=== PATIENT | male | born 1995 | race Caucasian/White ===

== ENCOUNTER 2019-05-09 12:10 | Emergency (ER) | payer MEDICAID ==
[~2019-05-09] VITALS: Ht 180.3 cm; Wt 81.6 kg
[2019-05-09 12:33] VITALS: BP 110/58
--- NOTE | 2019-05-09 13:30 | NUR ---
23/M presents ambulatory to ED, c/o cough, congestion x2 weeks. Reports chest pain with coughing. Pt awake and alert, skin normal color warm and dry, rr even and unlabored. Denies med hx.
[2019-05-09 14:10] VITALS: BP 123/70
--- NOTE | 2019-05-09 14:10 | NUR ---
Patient discharged with v/s stable. Written and verbal after care instructions given and explained. Patient alert, oriented and verbalized understanding of instructions. Ambulatory with steady gait. All questions addressed prior to discharge. ID band removed. Patient advised to follow up with PMD. Rx of naprosyn, prednisone, azithromycin, albuterol inh, aerochamger plus with mask given. Patient educated on indication of medication including possible reaction and side effects. Opportunity to ask questions provided and answered.
== END 2019-05-09 14:10 | disposition home or self-care (01) ==
LOC: MED 12:10
DX: J18.9 Pneumonia, unspecified organism (principal); J98.01 Acute bronchospasm
CPT/HCPCS: 71046; 99283

== ENCOUNTER 2019-11-07 22:52 | Emergency (ER) | payer MEDICAID ==
[~2019-11-07] VITALS: Ht 182.9 cm; Wt 81.6 kg
--- NOTE | 2019-11-07 23:00 | NUR ---
TDAP CONSENT OBTAINED FROM PT
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
[2019-11-07 23:12] VITALS: BP 119/77
--- NOTE | 2019-11-07 23:15 | NUR ---
CALLED [facility] AND SPOKE TO ANIKA [phone] TO GET [facility] TO COME AND SPEAK TO PT.
[2019-11-07] MEDS ORDERED: KETOROLAC 30 MG/ML VIAL IM ONE (23:20)
[2019-11-07] MEDS ORDERED: LIDOCAINE/EPI 1% 1:100000 20 ML VIAL INJ ONE (23:20)
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
--- NOTE | 2019-11-07 23:57 | NUR ---
[facility] AT BEDSIDE
[2019-11-08] MEDS ORDERED: BACITRACIN OINT 500 UNITS/GM PKT TP ONE (00:10)
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
[2019-11-08 00:19] VITALS: BP 119/77
== END 2019-11-08 00:19 | disposition home or self-care (01) ==
LOC: MED 22:52
DX: S41.011A Laceration without foreign body of right shoulder, initial encounter (principal); W26.0XXA Contact with knife, initial encounter; Y93.89 Activity, other specified; Y92.89 Other specified places as the place of occurrence of the external cause; Y99.8 Other external cause status
CPT/HCPCS: 12001; 73030; 90471; 90715; 96372; 99284; J1885; J2001; Q0092

== ENCOUNTER 2019-11-29 17:07 | Emergency (ER) | payer MEDICAID ==
[~2019-11-29] VITALS: Ht 175.3 cm; Wt 88.0 kg
[2019-11-29 17:10] VITALS: BP 127/88
--- NOTE | 2019-11-29 17:25 | NUR ---
amb to bed 12
[2019-11-29] MEDS ORDERED: KETOROLAC 60 MG/2 ML VIAL IM ONE (17:35)
[2019-11-29] MEDS ORDERED: LIDOCAINE MPF 1% 10 MG/ML VIAL INJ ONE (17:35)
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
[2019-11-29 18:41] VITALS: BP 127/88
== END 2019-11-29 18:41 | disposition home or self-care (01) ==
LOC: MED 17:07
DX: S61.421A Laceration with foreign body of right hand, initial encounter (principal); W22.8XXA Striking against or struck by other objects, initial encounter; Y93.89 Activity, other specified; Y92.89 Other specified places as the place of occurrence of the external cause; Y99.8 Other external cause status
CPT/HCPCS: 12031; 73130; 96372; 99284; J1885; J2001; Q0092; 99283